=== PATIENT | female | born 1995 | race Caucasian/White ===

== ENCOUNTER 2018-05-02 19:45 | Emergency (ER) | payer OTHER, BC ==
[2018-05-02 19:55] VITALS: BP 128/90; PULSE 110; TEMP 97.8; BMI 26.2
--- NOTE | 2018-05-02 20:01 | PDOC ---
History of Present Illness - General History Source: Patient Exam Limitations: No Limitations - History of Present Illness Initial Comments: 05/02/18 21:16 The patient is a 23 year old female with a significant past medical history of pyelonephritis who presents to the emergency department for evaluation of left foot s/p trip and fall. The patient reports severe left foot pain after falling while trying to prevent herself from falling flat on her face on concrete going down stairs at work this evening. She states she felt a crack and shift prior to falling down in excruciating pain. She denies head trauma or loss of consciousness. The patient notes that she was prompted to visit the emergency department for further evaluation after staff members noted her limited mobility and sizeable swelling on her left foot. The patient denies history of left foot injuries, chest pain, shortness of breath, headache, and dizziness. Denies fevers, chills, nausea, vomiting and use of medication for the aforementioned pain. Denies any other kinds of injury. Allergies: Chocolate flavor, shellfish derived. Past surgical history: Patient denies. Social history: Social alcohol consumption reported. No reported cigarette or drug use. <Dat Garcia - Last Filed: 05/02/18 21:16> <Jil Baeza - Last Filed: 05/03/18 06:25> - General Chief Complaint: Injury Stated Complaint: LEFT ANKLE/FOOT PAIN Time Seen by Provider: 05/02/18 19:54 Past History <Dat Garcia - Last Filed: 05/02/18 21:16> - Past Medical History COPD: No Disorders: Yes (PYELONEPHRITIS) - Suicide/Smoking/Psychosocial Hx Smoking History: Never smoked Hx Alcohol Use: Yes (SOCIAL) Drug/Substance Use Hx: No Substance Use Type: None <Jil Baeza - Last Filed: 05/03/18 06:25> - Past Medical History Allergies/Adverse Reactions: Allergies Allergy/AdvReac Type Severity Reaction Status Date / Time chocolate flavor Allergy Unknown Verified 05/02/18 19:48 shellfish derived Allergy Unknown Verified 05/02/18 19:48 Home Medications: Ambulatory Orders NK [No Known Home Medication] 05/02/18 Review of Systems - Review of Systems Able to Perform ROS?: Yes Comments:: All systems are reviewed and negative except as noted in the HPI. <Dat Garcia - Last Filed: 05/02/18 21:16> *Physical Exam - Vital Signs Last Vital Signs Temp Pulse Resp BP Pulse Ox 97.8 F 110 H 16 128/90 98 05/02/18 19:46 05/02/18 19:46 05/02/18 19:46 05/02/18 19:46 05/02/18 19:46 - Physical Exam Comments: GENERAL: The patient is awake, alert, and fully oriented, in no acute distress. HEAD: Normal with no signs of trauma. EYES: Pupils equal, round and reactive to light, extraocular movements intact, sclera anicteric, conjunctiva clear. EXTREMITIES: (+)Left lower extremity, generalized mild edema of left ankle and foot with moderate tenderness of lateral malleolus, and base of 5th metatarsal. No ecchymosis or deformities appreciated. No ligamentous instability. Distal foot is warm with good capillary refill. Dorsalis pedis pulse is palpable at midfoot. Otherwise normal range of motion, no edema. NEUROLOGICAL: Normal speech, normal gait. PSYCH: Normal mood, normal affect. SKIN: Warm, Dry, normal turgor, no rashes or lesions noted. <Dat Garcia - Last Filed: 05/02/18 21:16> - Vital Signs Last Vital Signs Temp Pulse Resp BP Pulse Ox 97.8 F 110 H 16 128/90 98 05/02/18 19:46 05/02/18 19:46 05/02/18 19:46 05/02/18 19:46 05/02/18 19:46 <Jil Baeza - Last Filed: 05/03/18 06:25> ED Treatment Course - ADDITIONAL ORDERS Additional order review: Laboratory Results 05/02/18 20:07 Urine HCG, Qual Negative <Juan Garciajose roberto - Last Filed: 05/02/18 21:16> Progress Note - Progress Note Progress Note: Documentation has been prepared under my direction and personally reviewed by me in its entirety. I attest that this documented accurately reflects all work, treatment, procedures and medical decision making performed by me. <Jil Baeza - Last Filed: 05/03/18 06:25> Medical Decision Making - Medical Decision Making As noted above, this 23-year-old woman presents with a history of turning her left ankle when she stumbled walking downstairs just prior to presentation. Exam as noted. Patient has tenderness laterally in the ankle and also in the foot. There is no deformity or ecchymosis. Preliminary interpretation of x- ray by me: No fracture or dislocation. Ankle stirrup removable splint initially placed on the patient; she did not tolerate this, stating that her foot did not feel like it was being supported; Jc dressing was placed and patient was given crutches for ambulation. She will follow-up with orthopedist in 3 days; meanwhile, she should not work and she was given work documentation for this. <Jil Baeza - Last Filed: 05/03/18 06:25> *DC/Admit/Observation/Transfer - Attestations Scribe Attestion: Documentation prepared by Dat Garcia, acting as medical device engineer for Jil Baeza MD. <Dat Garcia - Last Filed: 05/02/18 21:16> <Jil Baeza - Last Filed: 05/03/18 06:25> Diagnosis at time of Disposition: Ankle sprain Qualifiers: Encounter type: initial encounter Involved ligament of ankle: posterior talofibular ligament Laterality: left Qualified Code(s): S93.492A - Sprain of other ligament of left ankle, initial encounter - Discharge Dispostion Disposition: HOME Condition at time of disposition: Stable - Referrals Referrals: Vimal Betancur MD [Staff Physician] - Call tomorrow - Patient Instructions Additional Instructions: ice, elevation of left ankle/foot as much as possible over the next 2 days Crutches for ambulation for the next 2-3 days Ranulfo wrap during the day until seen by orthopedist Keep splint in place until seen by orthopedist Ibuprofen/naproxen/acetaminophen as needed for pain Call Dr. Betancur/Dr. Hirsch in the a.m. to make appointment within the next 2-3 days No work until seen by orthopedist - Post Discharge Activity Forms/Work/School Notes: Back to Work
[2018-05-02] MEDS ORDERED: IBUPROFEN 600 MG TABLET (FP) PO ONE ×2 (21:14→21:16)
== END 2018-05-02 21:32 | disposition home or self-care (01) ==
LOC: FER 19:45
PROC: 2W3RX1Z Immobilization of Left Lower Leg using Splint (ICD-10-PCS; principal; 2018-05-02)
DX: S93.492A Sprain of other ligament of left ankle, initial encounter (principal); W10.9XXA Fall (on) (from) unspecified stairs and steps, initial encounter; Y93.89 Activity, other specified; Y92.89 Other specified places as the place of occurrence of the external cause; Y99.0 Civilian activity done for income or pay
CPT/HCPCS: 73610-TC-LT-FY; 73630-TC-LT; 84703; 99282-25